=== PATIENT | female | born 1945 | race Asian ===

== ENCOUNTER 2020-02-13 14:34 | Emergency (ER) | payer MEDICARE, OTHER ==
[~2020-02-13] VITALS: Ht 162.6 cm; Wt 63.6 kg
[2020-02-13 14:42] VITALS: BP 133/75
== END 2020-02-13 15:03 | disposition left against medical advice (07) ==
LOC: EMS 14:34
DX: Z20.828 Contact with and (suspected) exposure to other viral communicable diseases (principal); Z53.21 Procedure and treatment not carried out due to patient leaving prior to being seen by health care provider